=== PATIENT | male | born 1990 | race Hispanic/Latino ===

== ENCOUNTER 2016-12-27 09:53 | Inpatient (IN) | payer MEDICAID, OTHER ==
[2016-12-27 09:57] VITALS: BMI 50.2
[2016-12-27] MEDS ORDERED: Sodium Chloride 0.9% 1,000 ML IV STA (10:11)
--- NOTE | 2016-12-27 10:19 | ED PDOC ---
Arrival/HPI <Theron Grier - Last Filed: 12/27/16 14:03> - General Historian: Patient - History of Present Illness Time/Duration: Other (last night at approximately 02:00) Symptom Onset: Gradual Symptom Course: Unchanged Quality: Cramping Severity Level: 8 Activities at Onset: Rest, Light Context: Home <Shannon Garcia - Last Filed: 12/27/16 14:44> - General Time Seen by Provider: 12/27/16 09:54 - History of Present Illness Narrative History of Present Illness (Text): 12/27/16 10:03 A 26 year old male, morbidly obese, who denies any significant past medical history, presents to the emergency department complaining of epigastric pain radiating to right abdomen and chest since last night. Patient describes pain as cramping. Patient states he has never had this problem before last night and notes he had some fatty/greasy food earlier in the evening. Patient also experiencing nausea but denies any vomiting, diarrhea, palpitations, wheezing, cough, or any other complaints. PERC negative. (Shannon Garcia) Past Medical History - Provider Review Nursing Documentation Reviewed: Yes - Infectious Disease Hx of Infectious Diseases: None - Tetanus Immunization Tetanus Immunization: Unknown - Past Medical History Past Medical History: No Previous - Cardiac Hx Cardiac Disorders: No - Pulmonary Hx Respiratory Disorders: No - Neurological Hx Neurological Disorder: No - HEENT Hx HEENT Disorder: No - Renal Hx Renal Disorder: No - Endocrine/Metabolic Hx Endocrine Disorders: No - Hematological/Oncological Hx Blood Disorders: No - Integumentary Hx Dermatological Disorder: No - Musculoskeletal/Rheumatological Hx Musculoskeletal Disorders: No - Gastrointestinal Hx Gastrointestinal Disorders: No - Genitourinary/Gynecological Hx Genitourinary Disorders: No - Psychiatric Hx Psychophysiologic Disorder: No Hx Substance Use: No - Past Surgical History Past Surgical History: No Previous - Anesthesia Hx Anesthesia: No - Suicidal Assessment Feels Threatened In Home Enviroment: No <Shannon Garcia - Last Filed: 12/27/16 14:44> Family/Social History - Physician Review Nursing Documentation Reviewed: Yes Family/Social History: No Known Family HX Smoking Status: Light Smoker < 10 Cigarettes Daily Hx Alcohol Use: No Hx Substance Use: No Hx Substance Use Treatment: No <Shannon Garcia - Last Filed: 12/27/16 14:44> Allergies/Home Meds <Theron Grier L - Last Filed: 12/27/16 14:03> <Shannon Garcia P - Last Filed: 12/27/16 14:44> Allergies/Adverse Reactions: Allergies No Known Allergies Allergy (Verified 11/19/14 08:43) Home Medications: Home Meds Medication Instructions Recorded Confirmed No Known Home Med 12/27/16 12/27/16 Review of Systems - Physician Review All systems were reviewed & negative as marked: Yes - Review of Systems Respiratory: absent: Cough, Wheezing Cardiovascular: absent: Palpitations, Edema Gastrointestinal: Abdominal Pain (right side; radiating from epigastric pain), Nausea. absent: Diarrhea, Vomiting Genitourinary Male: absent: Urinary Output Changes <Shannon Garcia P - Last Filed: 12/27/16 14:44> Physical Exam Vital Signs Reviewed: Yes Temperature: Afebrile Blood Pressure: Normal Pulse: Regular Respiratory Rate: Normal Appearance: Positive for: Well-Appearing Pain Distress: None Mental Status: Positive for: Alert and Oriented X 3 - Systems Exam Head: Present: Atraumatic, Normocephalic Pupils: Present: PERRL Extroacular Muscles: Present: EOMI Conjunctiva: Present: Normal Mouth: Present: Moist Mucous Membranes Neck: Present: Normal Range of Motion Respiratory/Chest: Present: Clear to Auscultation, Good Air Exchange. No: Respiratory Distress, Accessory Muscle Use, Wheezes, Tender to Palpation Cardiovascular: Present: Regular Rate and Rhythm, Normal S1, S2. No: Murmurs Abdomen: Present: Tenderness (RUQ/epigastric tenderness), Normal Bowel Sounds. No: Distention, Peritoneal Signs Back: Present: Normal Inspection Upper Extremity: Present: Normal Inspection. No: Cyanosis, Edema Lower Extremity: No: Edema, CALF TENDERNESS, Cyanosis, Erythema Neurological: Present: GCS=15, CN II-XII Intact, Speech Normal Skin: Present: Warm, Dry, Normal Color. No: Rashes Psychiatric: Present: Alert, Oriented x 3, Normal Insight, Normal Concentration <JoseNahim P - Last Filed: 12/27/16 14:44> Vital Signs Temp Pulse Resp BP Pulse Ox 12/27/16 13:00 80 18 114/57 L 97 12/27/16 11:40 72 18 127/54 L 99 12/27/16 10:40 70 18 119/97 H 97 12/27/16 10:00 67 20 128/74 98 12/27/16 09:56 97.8 F 67 18 128/74 99 Medical Decision Making - Lab Interpretations I have reviewed the lab results: Yes <Theron Grier L - Last Filed: 12/27/16 14:03> Re-evaluation Time: 12:43 Reassessment Condition: Re-examined, Improved <Shannon Garcia P - Last Filed: 12/27/16 14:44> ED Course and Treatment: 12/27/16 10:24 Impression: 26 year old male with episgastric pain radiating to the right side of abdomen and chest. PERC negative. Plan: -- Labs -- Pepcid -- Zofran -- IV Fluids -- Urinalysis -- Reassess and disposition Prior Visits: Notes and results from previous visits were reviewed. Patient was last seen in the emergency department on 11/19/2014 for right back pain radiating down to the right leg. Patient was discharged home. 12/27/16 12:11 I spoke with vice president fixed income regarding abdominal pain, and sonographic finding (Shannon Garcia P) - RAD Interpretation Narrative RAD Interpretations (Text): 12/27/16 12:11 Accession No. : [id number] Patient Name / ID : ERROL HERMOSILLO / [id number] Exam Date : 12/27/2016 11:06:14 ( Approved ) Study Comment : Sex / Age : M / 26Y Creator : Rosio Pratt V. Dictator : Rosio Pratt V. Extrusion Die Corrector : Agricultural Produce Washer : Rosio Pratt V. Approver2 : Report Date : 12/27/2016 11:32:59 My Comment : HISTORY: RUQ abdominal pain COMPARISON: None. TECHNIQUE: Sonographic evaluation of the abdomen. FINDINGS: LIVER: Measures 22.6 cm and is enlarged. Increased echogenicity of the liver parenchyma. No mass. No intrahepatic bile duct dilatation. GALLBLADDER: Gallbladder is contracted with stones. Positive sonographic Smith sign elicited per technologist. No pericholecystic fluid or gross gallbladder wall edema appreciated. COMMON BILE DUCT: Measures 4 point sick mm. No stones. No dilatation. PANCREAS: Unremarkable as visualized. No mass. No ductal dilatation. RIGHT KIDNEY: Measures 13.7 x 5.6 x 7.7cm. Normal echogenicity. No calculus, mass, or hydronephrosis. LEFT KIDNEY: Measures 13.6 x 6.9 x 7.7cm. Normal echogenicity. No calculus, mass, or hydronephrosis. SPLEEN: borderline enlarged at 14.5 cm. No mass. AORTA: No aneurysmal dilatation. IVC: Unremarkable. OTHER FINDINGS: None. IMPRESSION: Contracted gallbladder with gallstones and positive sonographic Smith sign. An acute/ subacute cholecystitis needs to be considered. No dilated ducts. No gross pericholecystic fluid. Hepatomegaly and hepatic steatosis . Borderline mild splenomegaly 12/27/16 12:18 Accession No. : [id number] Patient Name / ID : ERROL HERMOSILLO / [id number] Exam Date : 12/27/2016 11:40:52 ( Approved ) Study Comment : Sex / Age : M / 26Y Creator : Rosio Pratt V. Dictator : Rosio Pratt V. Extrusion Die Corrector : Agricultural Produce Washer : oRsio Pratt V. Approver2 : Report Date : 12/27/2016 12:10:41 My Comment : HISTORY: epigastric pain COMPARISON: No prior. FINDINGS: LUNGS: No active pulmonary disease. PLEURA: No significant pleural effusion identified, no pneumothorax apparent. CARDIOVASCULAR: Probably top-normal given technique OSSEOUS STRUCTURES: No significant abnormalities. VISUALIZED UPPER ABDOMEN: Normal. OTHER FINDINGS: None. IMPRESSION: No active disease. (Shannon Garcia) - Medication Orders Current Medication Orders: Lactated Ringer's (Lactated Ringer's) 1,000 mls @ 150 mls/hr IV .Q6H40M ROSY Cefazolin Sodium 2 gm/ Sodium (Chloride) 100 mls @ 200 mls/hr IVPB Q8 ROSY PRN Reason: Protocol Metronidazole (Flagyl) 500 mg in 100 mls @ 100 mls/hr IVPB Q8 ROSY PRN Reason: Protocol Morphine Sulfate (Morphine) 4 mg IVP Q4H PRN PRN Reason: Pain, moderate (4-7) Ondansetron HCl (Zofran Inj) 4 mg IVP Q4H PRN PRN Reason: Nausea/Vomiting Discontinued Medications Famotidine (Pepcid) 20 mg IVP STAT STA Stop: 12/27/16 10:12 Last Admin: 12/27/16 10:19 Dose: 20 mg Sodium Chloride (Sodium Chloride 0.9%) 1,000 mls @ 1,000 mls/hr IV .Q1H STA Stop: 12/27/16 11:10 Last Admin: 12/27/16 10:18 Dose: 1,000 mls/hr Morphine Sulfate (Morphine) 4 mg IVP STAT STA Stop: 12/27/16 12:09 Last Admin: 12/27/16 13:06 Dose: 4 mg Ondansetron HCl (Zofran Inj) 4 mg IVP STAT STA Stop: 12/27/16 10:12 Last Admin: 12/27/16 10:18 Dose: 4 mg Ondansetron HCl (Zofran Inj) 4 mg IVP STAT STA Stop: 12/27/16 12:10 Last Admin: 12/27/16 13:07 Dose: Not Given Non-Admin Reason: Patient Refused ED OBSERVATION <Theron Grier - Last Filed: 12/27/16 14:03> Date of observation admission: 12/27/16 Time of observation admission: 10:00 <Shannon Garcia - Last Filed: 12/27/16 14:44> - Observation admission statement Patient is being placed in observation because:: Epigastric pain radiating to ride side of abdomen and chest. (Shannon Garcia) - Goals of Observation Goals of observation are:: Monitor and treat patient's symptoms. (Shannon Garcia) - Progress Note Progress Note: 12/27/16 10:20 EKG: Ordered, reviewed, and independently interpreted the EKG. Rate : 80 BPM Rhythm : NSR Interpretation : No ST-segment elevations or depressions, no T-wave inversions, normal intervals. Comparison : No previous EKG for comparison. (Shannon Garcia) <Theron Grier - Last Filed: 12/27/16 14:03> <Shannon Garcia - Last Filed: 12/27/16 14:44> - Scribe Statement Liya Bradley Provider Scribe Attestation: All medical record entries made by the Scribe were at my direction and personally dictated by me. I have reviewed the chart and agree that the record accurately reflects my personal performance of the history, physical exam, medical decision making, and the department course for this patient. I have also personally directed, reviewed, and agree with the discharge instructions and disposition. (Shannon Garcia) Disposition/Present on Arrival <Theron Grier - Last Filed: 12/27/16 14:03> - Present on Arrival Any Indicators Present on Arrival: No History of DVT/PE: No History of Uncontrolled Diabetes: No Urinary Catheter: No History of Decub. Ulcer: No History Surgical Site Infection Following: None - Disposition Have Diagnosis and Disposition been Completed?: Yes Disposition Time: 12:43 Patient Plan: Admission <Shannon Garcia - Last Filed: 12/27/16 14:44> - Disposition Diagnosis: Cholelithiasis, Intractable abdominal pain Disposition: HOSPITALIZED Condition: STABLE
[2016-12-27 10:37] LABS: BASO # 0.02 K/mm3 (0.0-2.0); BASO % 0.2 % (0.0-3.0); EOS # 0.1 (0.0-0.7); GRAN # 6.27 (1.4-6.5); GRAN % 70.4 % (50.0-68.0); HEMOGLOBIN 15.6 gm/dL (14.0-18.0); LYMPH # 2.1 (1.2-3.4); LYMPH % 23.9 % (22.0-35.0); MEAN CELL VOLUME 82.7 fL (80.0-105.0); MEAN CORPUSCULAR HEMOGLOBIN 28.7 pg (25.0-35.0); MEAN CORPUSCULAR HGB CONC 34.7 g/dl (31.0-37.0); MEAN PLATELET VOLUME 11.8 fl (7.0-11.0); MONO # 0.4 (0.1-0.6); MONO % 4.5 % (1.0-6.0); PLATELET COUNT 196 10^3/uL (120.0-450.0); RBC 5.43 10^6/uL (3.5-6.1); RED CELL DISTRIBUTION WIDTH 13.1 % (11.5-14.5); WHITE BLOOD COUNT 8.9 10^3/ul (4.5-11.0)
[2016-12-27 10:41] LABS: ALB/GLOB RATIO 1.2 (1.1-1.8); ALBUMIN 4.4 g/dL (3.0-4.8); ALT/SGPT 107 U/L (7-56); AST/SGOT 43 U/L (15-59); BLOOD UREA NITROGEN 8 mg/dL (7-21); GFR AFRICAN-AMERICAN > 60; GFR NON-AFRICAN AMERICAN > 60; LIPASE 27 U/L (23-300)
--- NOTE | 2016-12-27 11:34 | US ---
HISTORY: RUQ abdominal pain COMPARISON: None. TECHNIQUE: Sonographic evaluation of the abdomen. FINDINGS: LIVER: Measures 22.6 cm and is enlarged. Increased echogenicity of the liver parenchyma. No mass. No intrahepatic bile duct dilatation. GALLBLADDER: Gallbladder is contracted with stones. Positive sonographic Smith sign elicited per technologist. No pericholecystic fluid or gross gallbladder wall edema appreciated. COMMON BILE DUCT: Measures 4 point sick mm. No stones. No dilatation. PANCREAS: Unremarkable as visualized. No mass. No ductal dilatation. RIGHT KIDNEY: Measures 13.7 x 5.6 x 7.7cm. Normal echogenicity. No calculus, mass, or hydronephrosis. LEFT KIDNEY: Measures 13.6 x 6.9 x 7.7cm. Normal echogenicity. No calculus, mass, or hydronephrosis. SPLEEN: borderline enlarged at 14.5 cm. No mass. AORTA: No aneurysmal dilatation. IVC: Unremarkable. OTHER FINDINGS: None. IMPRESSION: Contracted gallbladder with gallstones and positive sonographic Smith sign. An acute/ subacute cholecystitis needs to be considered. No dilated ducts. No gross pericholecystic fluid. Hepatomegaly and hepatic steatosis . Borderline mild splenomegaly
[2016-12-27 11:46] LABS: PH,URINE 6.5 (4.7-8.0); URINE BILIRUBIN NEGATIVE (NEGATIVE); URINE BLOOD NEGATIVE (NEGATIVE); URINE GLUCOSE (UA) NEGATIVE (NEGATIVE); URINE LEUKOCYTE ESTERASE NEGATIVE Leu/uL (NEGATIVE); URINE NITRATE NEGATIVE (NEGATIVE); URINE PROTEIN NEGATIVE mg/dL (<30 mg/dL)
[2016-12-27 11:52] LABS: URINE APPEARANCE CLEAR (CLEAR); URINE COLOR YELLOW (YELLOW)
[2016-12-27] MEDS ORDERED: Morphine 4 mg/ml ISec IVP STA (12:08)
--- NOTE | 2016-12-27 12:12 | RAD ---
HISTORY: epigastric pain COMPARISON: No prior. FINDINGS: LUNGS: No active pulmonary disease. PLEURA: No significant pleural effusion identified, no pneumothorax apparent. CARDIOVASCULAR: Probably top-normal given technique OSSEOUS STRUCTURES: No significant abnormalities. VISUALIZED UPPER ABDOMEN: Normal. OTHER FINDINGS: None. IMPRESSION: No active disease.
--- NOTE | 2016-12-27 12:51 | CP.PCM.CON ---
History of Present Illness - History of Present Illness History of Present Illness: SURGERY CONSULT NOTE FOR FOR DR. REGALADO Past Patient History - Infectious Disease Hx of Infectious Diseases: None - Tetanus Immunizations Tetanus Immunization: Unknown - Past Social History Smoking Status: Light Smoker < 10 Cigarettes Daily - CARDIAC Hx Cardiac Disorders: No - PULMONARY Hx Respiratory Disorders: No - NEUROLOGICAL Hx Neurological Disorder: No - HEENT Hx HEENT Problems: No - RENAL Hx Chronic Kidney Disease: No - ENDOCRINE/METABOLIC Hx Endocrine Disorders: No - HEMATOLOGICAL/ONCOLOGICAL Hx Blood Disorders: No - INTEGUMENTARY Hx Dermatological Problems: No - MUSCULOSKELETAL/RHEUMATOLOGICAL Hx Musculoskeletal Disorders: No - GASTROINTESTINAL Hx Gastrointestinal Disorders: No - GENITOURINARY/GYNECOLOGICAL Hx Genitourinary Disorders: No - PSYCHIATRIC Hx Psychophysiologic Disorder: No Hx Substance Use: No - SURGICAL HISTORY Hx Surgeries: No - ANESTHESIA Hx Anesthesia: No Meds Allergies/Adverse Reactions: Allergies Allergy/AdvReac Type Severity Reaction Status Date / Time No Known Allergies Allergy Verified 11/19/14 08:43 Results - Vital Signs Recent Vital Signs: Last Vital Signs Temp 97.8 F 12/27/16 09:56 Pulse 72 12/27/16 11:40 Resp 18 12/27/16 11:40 BP 127/54 L 12/27/16 11:40 Pulse Ox 99 12/27/16 11:40 - Labs Result Diagrams: 12/27/16 10:10 12/27/16 10:10 Labs: Laboratory Results - last 24 hr 12/27/16 12/27/16 12/27/16 10:10 10:10 11:30 WBC 8.9 RBC 5.43 Hgb 15.6 Hct 44.9 MCV 82.7 MCH 28.7 MCHC 34.7 RDW 13.1 Plt Count 196 MPV 11.8 H Gran % 70.4 H Lymph % (Auto) 23.9 Dillon % (Auto) 4.5 Eos % (Auto) 1.0 L Baso % (Auto) 0.2 Gran # 6.27 Lymph # 2.1 Dillon # 0.4 Eos # 0.1 Baso # 0.02 Sodium 141 Potassium 4.1 Chloride 103 Carbon Dioxide 28 Anion Gap 14 BUN 8 Creatinine 0.7 Est GFR ( Amer) > 60 Est GFR (Non-Af Amer) > 60 Random Glucose 143 H Calcium 9.0 Total Bilirubin 0.6 AST 43 ALT 107 H Alkaline Phosphatase 48 Total Protein 8.1 Albumin 4.4 Globulin 3.6 Albumin/Globulin Ratio 1.2 Lipase 27 Urine Color Yellow Urine Appearance Clear Urine pH 6.5 Ur Specific [place] 1.025 Urine Protein Negative Urine Glucose (UA) Negative Urine Ketones Negative Urine Blood Negative Urine Nitrate Negative Urine Bilirubin Negative Urine Urobilinogen 1.0 H Ur Leukocyte Esterase Negative
[2016-12-27] MEDS ORDERED: Morphine 4 mg/ml ISec IVP PRN (13:03)
--- NOTE | 2016-12-27 13:25 | CP.PCM.HP ---
History of Present Illness - History of Present Illness History of Present Illness: 26 yo M with no PMHx presenting with complaints of 11 hr hx of waxing and waning RUQ abdominal pain. Pt states that he ate a [place] sandwich last night at 6pm and experienced abrupt onset RUQ abdominal pain described as sharp, 10/10 in severity, and radiating to his L lower back. He was unable to sleep last night and noted dyspnea at rest at 5am. He had some mild nausea and bloating at that time. He denies f/c, vomiting, diarrhea, urinary complaints, cough, sore throat, chest pain, dizziness. Pain is now improved and has 5/10 pain. PMHx: N/A PSHx: N/A Meds: N/A, denies Tylenol use Social: admits to alcohol use (2 drinks/mon), admits to smoking 1/3 ppd, denies drug use FHx: father had cholecystectomy. Present on Admission - Present on Admission Any Indicators Present on Admission: Yes History of DVT/PE: No History of Uncontrolled Diabetes: No Review of Systems - Constitutional Constitutional: absent: Chills, Fever - EENT Nose/Mouth/Throat: absent: Sore Throat - Cardiovascular Cardiovascular: absent: Chest Pain, Leg Edema, Rapid Heart Rate - Respiratory Respiratory: Dyspnea. absent: Cough - Gastrointestinal Gastrointestinal: Abdominal Pain (RUQ and epigastric), Bloating, Nausea. absent : Diarrhea, Vomiting - Genitourinary Genitourinary: absent: Dysuria, Hematuria - Integumentary Integumentary: Rash Past Patient History - Infectious Disease Hx of Infectious Diseases: None - Tetanus Immunizations Tetanus Immunization: Unknown - Past Medical History & Family History Past Medical History?: No Pertinent Family History: Father: s/p cholecystectomy - Past Social History Smoking Status: Light Smoker < 10 Cigarettes Daily - CARDIAC Hx Cardiac Disorders: No - PULMONARY Hx Respiratory Disorders: No - NEUROLOGICAL Hx Neurological Disorder: No - HEENT Hx HEENT Problems: No - RENAL Hx Chronic Kidney Disease: No - ENDOCRINE/METABOLIC Hx Endocrine Disorders: No - HEMATOLOGICAL/ONCOLOGICAL Hx Blood Disorders: No - INTEGUMENTARY Hx Dermatological Problems: No - MUSCULOSKELETAL/RHEUMATOLOGICAL Hx Musculoskeletal Disorders: No - GASTROINTESTINAL Hx Gastrointestinal Disorders: No - GENITOURINARY/GYNECOLOGICAL Hx Genitourinary Disorders: No - PSYCHIATRIC Hx Psychophysiologic Disorder: No Hx Substance Use: No - SURGICAL HISTORY Hx Surgeries: No - ANESTHESIA Hx Anesthesia: No Meds Allergies/Adverse Reactions: Allergies Allergy/AdvReac Type Severity Reaction Status Date / Time No Known Allergies Allergy Verified 11/19/14 08:43 Physical Exam - Constitutional Appears: Well, No Acute Distress - Head Exam Head Exam: ATRAUMATIC, NORMAL INSPECTION, NORMOCEPHALIC - Eye Exam Eye Exam: EOMI, Normal appearance - ENT Exam ENT Exam: Mucous Membranes Moist - Neck Exam Neck exam: Positive for: Full Rom - Respiratory Exam Respiratory Exam: Clear to Auscultation Bilateral, NORMAL BREATHING PATTERN. absent: Accessory Muscle Use, Respiratory Distress - Cardiovascular Exam Cardiovascular Exam: REGULAR RHYTHM, RRR, +S1, +S2. absent: Diastolic murmur, Gallop, Rubs, Systolic Murmur - GI/Abdominal Exam GI & Abdominal Exam: Normal Bowel Sounds, Soft, Tenderness (Mild RUQ and epigastric tenderness to plapation. Negative Smith's sign.). absent: Distended , Firm, Guarding, Rigid Additional comments: No fluid wave. Negative heel tap. - Extremities Exam Extremities exam: Positive for: pedal pulses present. Negative for: pedal edema Additional comments: DP pulses 2+ equal bilaterally. 2+ radial pulses, equal bilaterally. - Neurological Exam Neurological exam: Alert, Oriented x3 - Psychiatric Exam Psychiatric exam: Normal Affect, Normal Mood - Skin Skin Exam: Dry, Intact, Normal Color, Warm Results - Vital Signs Recent Vital Signs: Last Vital Signs Temp 97.8 F 12/27/16 09:56 Pulse 72 12/27/16 11:40 Resp 18 12/27/16 11:40 BP 127/54 L 12/27/16 11:40 Pulse Ox 99 12/27/16 11:40 - Labs Result Diagrams: 12/27/16 10:10 12/27/16 10:10 Labs: Laboratory Results - last 24 hr 12/27/16 12/27/16 12/27/16 10:10 10:10 11:30 WBC 8.9 RBC 5.43 Hgb 15.6 Hct 44.9 MCV 82.7 MCH 28.7 MCHC 34.7 RDW 13.1 Plt Count 196 MPV 11.8 H Gran % 70.4 H Lymph % (Auto) 23.9 [place] % (Auto) 4.5 Eos % (Auto) 1.0 L Baso % (Auto) 0.2 Gran # 6.27 Lymph # 2.1 [place] # 0.4 Eos # 0.1 Baso # 0.02 Sodium 141 Potassium 4.1 Chloride 103 Carbon Dioxide 28 Anion Gap 14 BUN 8 Creatinine 0.7 Est GFR ( Amer) > 60 Est GFR (Non-Af Amer) > 60 Random Glucose 143 H Calcium 9.0 Total Bilirubin 0.6 AST 43 ALT 107 H Alkaline Phosphatase 48 Total Protein 8.1 Albumin 4.4 Globulin 3.6 Albumin/Globulin Ratio 1.2 Lipase 27 Urine Color Yellow Urine Appearance Clear Urine pH 6.5 Ur Specific [place] 1.025 Urine Protein Negative Urine Glucose (UA) Negative Urine Ketones Negative Urine Blood Negative Urine Nitrate Negative Urine Bilirubin Negative Urine Urobilinogen 1.0 H Ur Leukocyte Esterase Negative Assessment & Plan - Assessment and Plan (Free Text) Assessment: 26yo M presenting with RUQ pain for 1 day. Plan: Plan: -RUQ US: shows gallstones without gross pericholecystic fluid or dilated ducts -ECG and CXR unremarkable -HIDA scan r/o acute cholecystitis -pt NPO -Metronidazole and cefazolin until r/o acute cholecystitis -Morphine prn for pain, Zofran prn for nausea -CBC, CMP, PT/PTT Fluids: LR DVT PFX: SCDs Pt discussed with Dr. French Tim DO PGY1 - Date & Time Date: 12/27/16 Time: 14:38
[2016-12-27] MEDS: ceFAZolin 2 GM in Sodium Chloride 0.9% 100 ML IVPB SCH ×2 (15:14→22:41)
[2016-12-27] MEDS: Lactated Ringer's 1,000 ML IV SCH (15:15)
[2016-12-27] MEDS: metroNIDAZOLE IV 500 mg/100 ml 500 MG/100 ML BAG IVPB SCH ×2 (15:29→21:22)
--- NOTE | 2016-12-27 15:39 | CARD ---
APPROVED REPORT EKG Measurement Heart [id number] <Conclusion> Normal sinus rhythm with sinus arrhythmia Normal ECG
[2016-12-27] MEDS ORDERED: Pneumococcal 23-Valent Vaccine IM ONE (16:44)
[2016-12-28] MEDS: Lactated Ringer's 1,000 ML IV SCH ×2 (02:33→20:37)
[2016-12-28] MEDS: metroNIDAZOLE IV 500 mg/100 ml 500 MG/100 ML BAG IVPB SCH ×3 (05:29→23:15)
[2016-12-28] MEDS: ceFAZolin 2 GM in Sodium Chloride 0.9% 100 ML IVPB SCH ×3 (06:40→21:51)
[2016-12-28 08:20] LABS: BASO # 0.03 K/mm3 (0.0-2.0); BASO % 0.4 % (0.0-3.0); EOS # 0.2 (0.0-0.7); EOS % 2.1 % (1.5-5.0); GRAN # 4.41 (1.4-6.5); GRAN % 52.5 % (50.0-68.0); HEMOGLOBIN 14.9 gm/dL (14.0-18.0); LYMPH # 3.1 (1.2-3.4); LYMPH % 36.8 % (22.0-35.0); MEAN CORPUSCULAR HEMOGLOBIN 28.5 pg (25.0-35.0); MEAN CORPUSCULAR HGB CONC 34.7 g/dl (31.0-37.0); MONO # 0.7 (0.1-0.6); MONO % 8.2 % (1.0-6.0); PLATELET COUNT 190 10^3/uL (120.0-450.0); RBC 5.23 10^6/uL (3.5-6.1); RED CELL DISTRIBUTION WIDTH 13.1 % (11.5-14.5); WHITE BLOOD COUNT 8.4 10^3/ul (4.5-11.0)
[2016-12-28 08:30] LABS: INR 1.08 (0.93-1.08); PROTHROMBIN TIME 11.7 Seconds (9.9-11.8)
[2016-12-28 08:32] LABS: ALB/GLOB RATIO 1.2 (1.1-1.8); ALBUMIN 3.9 g/dL (3.0-4.8); ALT/SGPT 98 U/L (7-56); AST/SGOT 41 U/L (15-59); BLOOD UREA NITROGEN 5 mg/dL (7-21); CALCIUM 8.9 mg/dL (8.4-10.5); GFR AFRICAN-AMERICAN > 60; GFR NON-AFRICAN AMERICAN > 60
--- NOTE | 2016-12-28 11:00 | NM ---
PROCEDURE: Nuclear Medicine Hepatobiliary Scan HISTORY: R/O cholecystitis COMPARISON: 12/27/2016 abdominal ultrasound TECHNIQUE: 6.0 mCi of technetium 99m Mebrofenin was administered intravenously. Planar images of the abdomen were obtained at 5 min intervals to 60 mins. Delayed images were also obtained. FINDINGS: LIVER: Timely and homogenous uptake. COMMON BILE DUCT: identified at 30 mins. GALLBLADDER: Not identified at 4 hours. SMALL BOWEL: Identified at 45 mins. IMPRESSION: Positive Hepatobiliary Scan. The cystic duct is occluded presumptive evidence for acute cholecystitis. Findings consistent with abdominal ultrasound reported separately. Concordant results (preliminary interpretation) provided by [facility]. Procedure Completed: 18:28 Preliminary ([facility]) Report: Dictated and Authenticated: 19:02. Final Interpretation: 10:55. December 28, 2016.
[2016-12-29] MEDS: ceFAZolin 2 GM in Sodium Chloride 0.9% 100 ML IVPB SCH ×3 (05:41→21:55)
[2016-12-29] MEDS: Lactated Ringer's 1,000 ML IV SCH (05:46)
[2016-12-29] MEDS: metroNIDAZOLE IV 500 mg/100 ml 500 MG/100 ML BAG IVPB SCH ×3 (06:26→23:02)
[2016-12-29 07:06] LABS: BASO # 0.03 K/mm3 (0.0-2.0); BASO % 0.3 % (0.0-3.0); EOS # 0.1 (0.0-0.7); EOS % 1.2 % (1.5-5.0); GRAN # 5.72 (1.4-6.5); GRAN % 57.3 % (50.0-68.0); HEMOGLOBIN 15.5 gm/dL (14.0-18.0); LYMPH # 3.4 (1.2-3.4); MEAN CORPUSCULAR HEMOGLOBIN 28.2 pg (25.0-35.0); MEAN CORPUSCULAR HGB CONC 34.4 g/dl (31.0-37.0); MEAN PLATELET VOLUME 11.5 fl (7.0-11.0); MONO # 0.7 (0.1-0.6); MONO % 7.2 % (1.0-6.0); PLATELET COUNT 212 10^3/uL (120.0-450.0); RBC 5.49 10^6/uL (3.5-6.1); RED CELL DISTRIBUTION WIDTH 13.2 % (11.5-14.5)
[2016-12-29 07:23] LABS: ALB/GLOB RATIO 1.4 (1.1-1.8); ALBUMIN 4.4 g/dL (3.0-4.8); ALT/SGPT 101 U/L (7-56); AST/SGOT 46 U/L (15-59); BLOOD UREA NITROGEN 6 mg/dL (7-21); CALCIUM 9.1 mg/dL (8.4-10.5); GFR AFRICAN-AMERICAN > 60; GFR NON-AFRICAN AMERICAN > 60
[2016-12-29] MEDS ORDERED: Iohexol 240 (50 ml) ONE (07:33)
[2016-12-29] MEDS ORDERED: Bupivacaine 0.5% Inj(30mL) ONE (07:33)
[2016-12-29] MEDS ORDERED: Propofol 10 mg/ml Inj (20 ML) ONE ×3 (07:40→13:38)
[2016-12-29] MEDS ORDERED: Midazolam 2 MG/2 ML VIAL ONE (07:41)
[2016-12-29] MEDS ORDERED: Rocuronium 10 mg/ml (5 ml) ONE ×2 (07:47→13:15)
[2016-12-29] MEDS ORDERED: Succinylcholine 200 mg/10 ml Inj IV ONE (07:47)
[2016-12-29] MEDS ORDERED: Sevoflurane - Inhalation Anesthetic Liq (250 ml) ONE (08:02)
[2016-12-29] MEDS ORDERED: Glycopyrrolate 0.2 mg/ml (2ml vial) ONE ×2 (08:52→14:30)
[2016-12-29] MEDS ORDERED: HYDROmorphone 0.5 mg/0.5 ml ISec IVP PRN (09:06)
[2016-12-29] MEDS ORDERED: Lactated Ringer's 1,000 ML IV SCH ×2 (09:06→10:08)
[2016-12-29] MEDS ORDERED: Liquid Adhesive TOP ONE (09:44)
[2016-12-29] MEDS ORDERED: Oxycodone/Acetaminophen 5/325 mg Tab PO PRN (10:08)
[2016-12-29] MEDS ORDERED: HYDROmorphone 0.5 mg/0.5 ml ISec ONE (10:17)
--- NOTE | 2016-12-29 10:51 | PCM.SURG1 ---
Surgeon's Initial Post Op Note - Surgeon's Notes Surgeon: Dr Braswell Inside Sales Account Executive: Dr Saldaña PGY3, Dr Dalton PGY2, Johan MS3 Pre-Operative Diagnosis: acute cholecystitis Operative Findings: as above Post-Operative Diagnosis: as above Operation Performed: laparoscopic cholecystectomy Specimen/Specimens Removed: gallbladder Estimated Blood Loss: EBL {In ML}: 30 Blood Products Given: N/A Drains Used: No Drains Post-Op Condition: Good Date of Surgery/Procedure: 12/29/16 Time of Surgery/Procedure: 10:50
[2016-12-29] MEDS: Morphine 4 mg/ml ISec IVP PRN ×2 (12:16→20:29)
[2016-12-29] MEDS ORDERED: Neostigmine Methylsulfate 3mg/3ml Syringe IV ONE (14:29)
[2016-12-30 02:45] LABS: CK-MB 1.5 ng/mL (0.0-3.6)
[2016-12-30 02:50] LABS: TROPONIN I < 0.01 ng/mL
[2016-12-30] MEDS: ceFAZolin 2 GM in Sodium Chloride 0.9% 100 ML IVPB SCH ×3 (05:45→23:44)
[2016-12-30] MEDS: metroNIDAZOLE IV 500 mg/100 ml 500 MG/100 ML BAG IVPB SCH ×3 (06:47→21:08)
[2016-12-30 07:50] LABS: BASO # 0.02 K/mm3 (0.0-2.0); BASO % 0.2 % (0.0-3.0); EOS % 0.3 % (1.5-5.0); GRAN # 6.46 (1.4-6.5); GRAN % 65.4 % (50.0-68.0); HEMOGLOBIN 15.6 gm/dL (14.0-18.0); LYMPH # 2.3 (1.2-3.4); LYMPH % 22.8 % (22.0-35.0); MEAN CELL VOLUME 82.5 fL (80.0-105.0); MEAN CORPUSCULAR HEMOGLOBIN 28.2 pg (25.0-35.0); MEAN CORPUSCULAR HGB CONC 34.1 g/dl (31.0-37.0); MEAN PLATELET VOLUME 11.2 fl (7.0-11.0); MONO # 1.1 (0.1-0.6); MONO % 11.3 % (1.0-6.0); PLATELET COUNT 216 10^3/uL (120.0-450.0); RBC 5.54 10^6/uL (3.5-6.1); RED CELL DISTRIBUTION WIDTH 13.2 % (11.5-14.5); WHITE BLOOD COUNT 9.9 10^3/ul (4.5-11.0)
[2016-12-30 08:09] LABS: ALB/GLOB RATIO 1.1 (1.1-1.8); ALBUMIN 4.3 g/dL (3.0-4.8); ALT/SGPT 117 U/L (7-56); AST/SGOT 75 U/L (15-59); BLOOD UREA NITROGEN 7 mg/dL (7-21); GFR AFRICAN-AMERICAN > 60; GFR NON-AFRICAN AMERICAN > 60
--- NOTE | 2016-12-30 09:19 | CP.PCM.DIS ---
Provider - Provider Date of Admission: 12/28/16 12:23 Attending physician: Blue Braswell MD Primary care physician: NO PRIMARY CARE PROVIDER Time Spent in preparation of Discharge (in minutes): 30 Hospital Course - Lab Results Lab Results: Most Recent Lab Values WBC 9.9 10^3/ul (4.5-11.0) 12/30/16 07:42 RBC 5.54 10^6/uL (3.5-6.1) 12/30/16 07:42 Hgb 15.6 gm/dL (14.0-18.0) 12/30/16 07:42 Hct 45.7 % (42.0-52.0) 12/30/16 07:42 MCV 82.5 fL (80.0-105.0) 12/30/16 07:42 MCH 28.2 pg (25.0-35.0) 12/30/16 07:42 MCHC 34.1 g/dl (31.0-37.0) 12/30/16 07:42 RDW 13.2 % (11.5-14.5) 12/30/16 07:42 Plt Count 216 10^3/uL (120.0-450.0) 12/30/16 07:42 MPV 11.2 fl (7.0-11.0) H 12/30/16 07:42 Gran % 65.4 % (50.0-68.0) 12/30/16 07:42 Lymph % (Auto) 22.8 % (22.0-35.0) 12/30/16 07:42 Prentiss % (Auto) 11.3 % (1.0-6.0) H 12/30/16 07:42 Eos % (Auto) 0.3 % (1.5-5.0) L 12/30/16 07:42 Baso % (Auto) 0.2 % (0.0-3.0) 12/30/16 07:42 Gran # 6.46 (1.4-6.5) 12/30/16 07:42 Lymph # 2.3 (1.2-3.4) 12/30/16 07:42 Prentiss # 1.1 (0.1-0.6) H 12/30/16 07:42 Eos # 0.0 (0.0-0.7) 12/30/16 07:42 Baso # 0.02 K/mm3 (0.0-2.0) 12/30/16 07:42 PT 11.7 Seconds (9.9-11.8) 12/28/16 08:00 INR 1.08 (0.93-1.08) 12/28/16 08:00 APTT 28.0 Seconds (23.7-30.8) 12/28/16 08:00 Sodium 139 mmol/L (132-148) 12/30/16 07:42 Potassium 4.0 mmol/L (3.6-5.0) 12/30/16 07:42 Chloride 99 mmol/L (98-107) 12/30/16 07:42 Carbon Dioxide 28 mmol/L (21-33) 12/30/16 07:42 Anion Gap 16 (10-20) 12/30/16 07:42 BUN 7 mg/dL (7-21) 12/30/16 07:42 Creatinine 0.8 mg/dL (0.5-1.4) 12/30/16 07:42 Est GFR ( Amer) > 60 12/30/16 07:42 Est GFR (Non-Af Amer) > 60 12/30/16 07:42 Random Glucose 94 mg/dL (70-110) 12/30/16 07:42 Calcium 9.0 mg/dL (8.4-10.5) 12/30/16 07:42 Total Bilirubin 1.6 mg/dL (0.2-1.3) H 12/30/16 07:42 AST 75 U/L (15-59) H 12/30/16 07:42 ALT 117 U/L (7-56) H 12/30/16 07:42 Alkaline Phosphatase 47 U/L (38-133) 12/30/16 07:42 Total Creatine Kinase 422 U/L (35-230) H 12/30/16 01:55 CK-MB (CK-2) 1.5 ng/mL (0.0-3.6) 12/30/16 01:55 CK-MB (CK-2) % Cancelled 12/30/16 01:55 Troponin I < 0.01 ng/mL 12/30/16 01:55 Total Protein 8.1 g/dL (5.8-8.3) 12/30/16 07:42 Albumin 4.3 g/dL (3.0-4.8) 12/30/16 07:42 Globulin 3.8 gm/dL 12/30/16 07:42 Albumin/Globulin Ratio 1.1 (1.1-1.8) 12/30/16 07:42 Lipase 27 U/L (23-300) 12/27/16 10:10 Urine Color Yellow (YELLOW) 12/27/16 11:30 Urine Appearance Clear (CLEAR) 12/27/16 11:30 Urine pH 6.5 (4.7-8.0) 12/27/16 11:30 Ur Specific Garrard 1.025 (1.005-1.035) 12/27/16 11:30 Urine Protein Negative mg/dL (<30 mg/dL) 12/27/16 11:30 Urine Glucose (UA) Negative mg/dL (NEGATIVE) 12/27/16 11:30 Urine Ketones Negative mg/dL (NEGATIVE) 12/27/16 11:30 Urine Blood Negative (NEGATIVE) 12/27/16 11:30 Urine Nitrate Negative (NEGATIVE) 12/27/16 11:30 Urine Bilirubin Negative (NEGATIVE) 12/27/16 11:30 Urine Urobilinogen 1.0 E.U./dL (<1 E.U./dL) H 12/27/16 11:30 Ur Leukocyte Esterase Negative Nicholas/uL (NEGATIVE) 12/27/16 11:30 - Hospital Course Hospital Course: Patient is a 26 year old who presented to the ED for evaluation of waxing and waning RUQ abdominal pain. With the use of lab work, physical exam, and imaging the patient was diagnosed with acute cholecystits. He underwent a laparoscopic cholecystectomy without complications. Post op course without complications. Patient advised to take medications as prescribed. Educated to follow up in the outpatient office with Dr. French catherine and his primary care physician. Educated to return to ED if experiencing fever, chills, dizziness, chest pain, SOB, abdominal pain, intractable nausea, vomiting, and/or diarrhea. Discharge Exam - Head Exam Head Exam: ATRAUMATIC, NORMAL INSPECTION, NORMOCEPHALIC - Additional Findings Additional findings: - Constitutional Appears: Well, No Acute Distress - Head Exam Head Exam: ATRAUMATIC, NORMAL INSPECTION, NORMOCEPHALIC - Eye Exam Eye Exam: EOMI, Normal appearance - ENT Exam ENT Exam: Mucous Membranes Moist - Neck Exam Neck exam: Positive for: Full Rom - Respiratory Exam Respiratory Exam: Clear to Auscultation Bilateral, NORMAL BREATHING PATTERN. absent: Accessory Muscle Use, Respiratory Distress - Cardiovascular Exam Cardiovascular Exam: REGULAR RHYTHM, RRR, +S1, +S2. absent: Diastolic murmur, Gallop, Rubs, Systolic Murmur - GI/Abdominal Exam GI & Abdominal Exam: Normal Bowel Sounds, Soft, Tenderness absent: Distended, Firm, Guarding, Rigid - Extremities Exam Extremities exam: Positive for: pedal pulses present. Negative for: pedal edema Additional comments: - Neurological Exam Neurological exam: Alert, Oriented x3 - Psychiatric Exam Psychiatric exam: Normal Affect, Normal Mood - Skin Skin Exam: Dry, Intact, Normal Color, Warm Discharge Plan - Follow Up Plan Condition: STABLE Disposition: HOME/ ROUTINE Instructions: Abdominal Pain (ED) Referrals: PCP,NO [Primary Care Provider] -
[2016-12-30] MEDS: Enoxaparin 40 mg Syringe SC SCH (10:01)
--- NOTE | 2016-12-30 23:18 | OP ---
PREOPERATIVE DIAGNOSIS: Acute on chronic cholecystitis. POSTOPERATIVE DIAGNOSIS: Acute on chronic cholecystitis. PROCEDURE: Laparoscopic cholecystectomy. In the operating room, the patient was identified by name, procedure, laterality, and my rashaad. In the operating room, it was noted that the gallbladder was contracted but filled with stones. It was extremely difficult to grab the gallbladder. A tooth forceps was eventually used and a small rent in the gallbladder was noted. We were unable to grab lower down and a second tooth forceps was used, but this did allow us to pull up on the end of the infundibulum and pull down the peritoneum to expose the cystic duct and the artery very nicely. There was a stone impacted that was easily seen. A larger clip was placed using a 10 mm port at the xyphoid. This was done having placed a 10-12 at the umbilicus and 2 right upper quadrant drains using 5 mm. This was done using the Varus needle and the Visi-Port. Thorough dissection was done at this point exposing the cystic artery beneath the large lymph node. The presumptive cystic duct was seen; however, it turned out to have nothing, but minor fibers. The cystic duct was seen a little bit deeper. It was circumscribed and cleaned. Having cleaned very nicely, the cystic duct and artery above and below and the liver bed identified beyond it, the clips were placed on the cystic duct, it was divided as was the artery. The gallbladder was then taken off the liver bed using the hook and cautery at 20. It came out nicely, we entered the gallbladder. The gallbladder was placed in a bag and removed through the umbilicus having dilated and cut the fascia because they were so large. This was closed under direct vision using 0-Prolene Shane cannula as necessary. The area was cleaned, dry, there was nothing untoward, no leaking, no bile, very little bleeding once the initial inflammation was swept aside. In the end the abdomen was well attended. There was nothing untoward. The abdomen was copiously irrigated and dried. The incision was closed, dressed with Marcaine, subcutaneous tissue was closed with Vicryl and Dermabond. Patient taken to recovery room in good condition. All the sponge, needle, and counts were correct. Blue Braswell MD [facility] # [id number]
[2016-12-31] MEDS: ceFAZolin 2 GM in Sodium Chloride 0.9% 100 ML IVPB SCH (05:10)
[2016-12-31] MEDS: metroNIDAZOLE IV 500 mg/100 ml 500 MG/100 ML BAG IVPB SCH (06:46)
[2016-12-31 07:58] VITALS: BP 120/72; PULSE 79; RESP 22; TEMP 99; O2SAT 95
[2016-12-31 09:17] LABS: ALB/GLOB RATIO 1.1 (1.1-1.8); ALBUMIN 4.3 g/dL (3.0-4.8); ALT/SGPT 89 U/L (7-56); AST/SGOT 57 U/L (15-59); BLOOD UREA NITROGEN 7 mg/dL (7-21); CALCIUM 9.4 mg/dL (8.4-10.5); GFR AFRICAN-AMERICAN > 60; GFR NON-AFRICAN AMERICAN > 60
[2016-12-31] MEDS: Enoxaparin 40 mg Syringe SC SCH (09:27)
--- NOTE | 2016-12-31 10:09 | CARD ---
APPROVED REPORT EKG Measurement Heart [id number] ID [id number] <Conclusion> Normal sinus rhythm Moderate voltage criteria for LVH, may be normal variant Small q waves 2,3,F Electrical artifact Probably no change
== END 2016-12-31 12:27 | disposition home or self-care (01) | DRG 418 ==
LOC: ED 09:53 → EROBSV 10:00 → ERH 12:53 → 5RNO 15:40 → OBSVTOIN 12-28 12:23
PROVIDERS: ADMIT Surgery; ATTEND Surgery
PROC: 0FT44ZZ Resection of Gallbladder, Percutaneous Endoscopic Approach (ICD-10-PCS; principal; 2016-12-29 07:30)
DX: K80.12 Calculus of gallbladder with acute and chronic cholecystitis without obstruction (principal); Z68.43 Body mass index [BMI] 50.0-59.9, adult; K76.0 Fatty (change of) liver, not elsewhere classified; E66.01 Morbid (severe) obesity due to excess calories; F17.210 Nicotine dependence, cigarettes, uncomplicated; R40.2412 Glasgow coma scale score 13-15, at arrival to emergency department